=== PATIENT | male | born 1940 | race Caucasian/White ===

== ENCOUNTER → 2020-03-04 | Outpatient (CLI) | payer OTHER ==
--- NOTE | 2020-03-04 13:31 | CARD ---
MR#: [id number] Date of Study: 03/04/2020 Ordering Physician: JUS MOYER, Referring Physician: JUS MOYER, Tech: APPROVED REPORT PROCEDURE: Successful implantation of [employer] Linq loop recorder INDICATIONS: Atrial fibrillation management PROCEDURE DETAILS: An informed consent was obtained from patient. Patient was brought to the procedure suite and her le ft chest and shoulder were prepped and draped in the usual fashion. 20 mL of 2% lidocaine was infilt rated into the skin and subcutaneous tissues for local anesthesia. An incision was made in the left fourth intercostal space 1 inch from midsternal line and using the introducer and deployer provided w ith the kit a Med[employer] Linq loop recorder was placed in the subcutaneous tissue. Hemostasis was secu red. Patient tolerated the procedure well. There were no immediate complications. At the end of pr ocedure, the device showed sensing amplitude of 2.7 mV. CONCLUSION: Successful implantation of Medtronic Linq loop recorder to assess AF burden and guide anticoagulation and antiarrhythmic therapy. Signed by : Jus Moyer, Electronically Approved : 03/04/2020 13:30:38
== END ==
LOC: LINQ 12:50
PROVIDERS: ATTEND Internal Medicine Cardiovascular Disease
DX: I48.91 Unspecified atrial fibrillation (principal)
CPT/HCPCS: 33285; C1764

== ENCOUNTER → 2020-04-01 | Outpatient (CLI) | payer MEDICARE ==
--- NOTE | 2020-04-01 15:52 | CARD ---
MR#: [id number] Date of Study: 04/01/2020 Ordering Physician: JUS CACERES, Referring Physician: JUS CACERES, Tech: Alesha De Oliveira RDCS APPROVED REPORT EXAM: Two-dimensional and M-mode echocardiogram with Doppler and color Doppler. Other Information Quality : Good Rhythm : NSR INDICATION Paroxysmal Atrial Fibrillation 2D DIMENSIONS RVDd2.7 (2.9-3.5cm)Left Atrium(2D)3.7 (1.6-4.0cm) IVSd1.0 (0.7-1.1cm)Aortic Root(2D)3.1 (2.0-3.7cm) LVDd4.7 (3.9-5.9cm)LVOT Diameter2.1 (1.8-2.4cm) PWd0.8 (0.7-1.1cm)LVDs2.5 (2.5-4.0cm) FS (%) 30.0 %SV77.2 ml LVEF(%)60.0 (>50%) Aortic Valve AoV Peak Aaron.122.9cm/sAoV VTI23.9cm AO Peak GR.6.0mmHgLVOT Peak Aaron.126.1cm/s AO Mean GR.3mmHgAVA (VMAX)3.54cm2 TERRELL (VTI)4.17zm9RQ P 1/2 Eawx012rj Mitral Valve MV E Wxpbaqzv14.1cm/sMV DECEL VFOJ573hm MV A Mptjrrtk27.8cm/sE/A Ratio1.1 Tricuspid Valve TR P. Etbfomgz108wi/sRAP PPTBMHIN7vrZt TR Peak Gr.22poUbOHZD41ycMo Pulmonary Vein S1 Fgdvybnj08.4cm/sD2 Hgdywpzt76.4cm/s LEFT VENTRICLE The left ventricle is normal size. There is normal left ventricular wall thickness. The left ventricu lar systolic function is normal and the ejection fraction is within normal range. The Ejection Fracti on is 55-60%. There is normal LV segmental wall motion. RIGHT VENTRICLE The right ventricle is normal size. The right ventricular systolic function is normal. ATRIA The left atrium size is normal. The right atrium size is normal. The interatrial septum is intact wit h no evidence for an atrial septal defect or patent foramen ovale as noted on 2-D or Doppler imaging. AORTIC VALVE The aortic valve is mildly thickened but opens well. Doppler and Color Flow revealed mild to moderate aortic regurgitation. There is no significant aortic valvular stenosis. MITRAL VALVE The mitral valve is moderately thickened. Mitral annular calcification is mild to moderate. There is no evidence of mitral valve prolapse. There is no mitral valve stenosis. Doppler and Color-flow revea led mild mitral regurgitation. TRICUSPID VALVE The tricuspid valve is normal in structure and function. Doppler and Color Flow revealed mild tricusp id regurgitation. The PA pressure was estimated at 37 mmHg. There is no tricuspid valve stenosis. PULMONIC VALVE The pulmonary valve is normal in structure and function. Doppler and Color Flow revealed mild pulmoni c valvular regurgitation. There is no pulmonic valvular stenosis. GREAT VESSELS The aortic root is normal in size. The ascending aorta is normal in size. The IVC is normal in size a nd collapses >50% with inspiration. PERICARDIAL EFFUSION There is no evidence of significant pericardial effusion. Critical Notification Critical Value: No <Conclusion> The left ventricle is normal size. The left ventricular systolic function is normal and the ejection fraction is within normal range. The Ejection Fraction is 55-60%. Doppler and Color Flow revealed mild to moderate aortic regurgitation. There is no significant aortic valvular stenosis. Doppler and Color-flow revealed mild mitral regurgitation. Doppler and Color Flow revealed mild tricuspid regurgitation. The PA pressure was estimated at 37 mmHg. Signed by : Cordell Hurst MD Electronically Approved : 04/01/2020 15:51:23
== END ==
LOC: ECHO 09:38 → EDUNIT# 10:00
PROVIDERS: ATTEND Internal Medicine Cardiovascular Disease
DX: I08.8 Other rheumatic multiple valve diseases (principal); I48.0 Paroxysmal atrial fibrillation
CPT/HCPCS: 93306